=== PATIENT | male | born 1975 | race Two or more races ===

== ENCOUNTER 2021-08-25 11:48 | Emergency (ER) | payer OTHER ==
[~2021-08-25] VITALS: Ht 180.3 cm; Wt 89.4 kg
[2021-08-25] MEDS ORDERED: BUPROPION XL300 MG PO (11:53)
[2021-08-25] MEDS ORDERED: CLARITIN10 M1 (11:53)
[2021-08-25] MEDS ORDERED: AMBIEN10 MG PO (11:54)
[2021-08-25] MEDS ORDERED: LIPITOR20 MG PO (11:54)
== END 2021-08-25 17:21 | disposition home or self-care (01) ==
LOC: ER 11:48
DX: M54.2 Cervicalgia (principal)